=== PATIENT | male | born 2005 | race African-American/Black ===

== ENCOUNTER 2024-09-08 14:28 | Outpatient (CLI) | payer SELFPAY | END 2024-09-08 14:29 | disposition home or self-care (01) | PROVIDERS: Visit Provider Family Medicine | DX: S09.90XA Unspecified injury of head, initial encounter (principal); R51.9 Headache, unspecified; V49.40XA Driver injured in collision with unspecified motor vehicles in traffic accident, initial encounter; Y92.410 Unspecified street and highway as the place of occurrence of the external cause | CPT/HCPCS: A0425; A0427 ==

== ENCOUNTER 2024-09-08 15:05 | Emergency (ER) | payer SELFPAY ==
[2024-09-08] VITALS (12 sets, daily range): BP systolic 113–131; BP diastolic 57–74; PULSE 56–80; RESP 15–20; TEMP 36.6–37; O2SAT 98–100; BMI 20.7
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
[2024-09-08 15:36] LABS: Eosinophils Percent Auto 1.3 % (0.0-7.0); Hematocrit 38.6 % (37.0-53.0); Hemoglobin* 13.4 gm/dL (13.5-17.5); Immature Granulocytes Pct Auto 0.3 %; Lymphocytes Percent Auto 45.2 % (20-44); Mean Corpuscular HGB Conc 35 gm/dL (32-36); Mean Corpuscular Hemoglobin 32 pg (26-34); Mean Corpuscular Volume 91 fL (80-100); Monocytes Percent Auto 11.7 % (0.0-11.0); Neutrophils Percent Auto 40.5 % (42.0-72.0); Platelet Count* 268 K/uL (140-440); RDW Coefficient of Variation % 11.8 % (11.5-15.5); Red Blood Count 4.25 m/uL (4.30-5.90); White Blood Count* 2.99 K/uL (4.50-11.00)
[2024-09-08] MEDS: 0.9 % SODIUM CHLORIDE 1000 ml 1,000 ML IV ×2 (15:41→17:41)
[2024-09-08 15:42] LABS: Troponin, Point-of-Care* 0.01 ng/ml (0.01-0.04)
[2024-09-08 15:48] LABS: Albumin* 4.4 g/dL (3.3-5.0); Chloride* 101 mmol/L (96-114); Potassium* 3.5 mmol/L (3.6-5.1); Slide Review Reflex No; Sodium* 135 mmol/L (135-149)
[2024-09-08 15:51] LABS: Alkaline Phosphatase* 57 U/L (40-150); Amylase* 96 U/L (18-89); Anion Gap 10 mEq/L (7-15); Aspartate Amino Transferase* 25 U/L (12-35); Bilirubin Direct* 0.2 mg/dL (0.0-0.5); Bilirubin Total* 0.7 mg/dL (0.1-1.5); Blood Urea Nitrogen* 15 mg/dL (5-24); Calcium* 8.7 mg/dL (8.4-10.6); Carbon Dioxide* 24 mmol/L (20-32); Creatinine* 0.8 mg/dL (0.5-1.5); Estimated Glomerular Filt Rate 130 ml/min; Glucose* 98 mg/dL (60-115); Total Protein* 7.4 g/dL (6.0-8.3)
[2024-09-08 15:52] LABS: Alanine Aminotransferase* 18 U/L (4-50); Lipase* 52 U/L (23-300)
[2024-09-08 16:07] LABS: Appearance Urine Clear (Clear); Bilirubin Urine Negative (Negative); Blood Urine Negative (Negative); Color Urine Yellow (Yellow); Glucose Urine Negative (Negative); Ketones Urine Negative (Negative); Leukocyte Esterase Urine Negative (Negative); Nitrite Urine Negative (Negative); Protein Urine Negative (Negative); Specific Gravity Urine 1.015 (1.000-1.030); Urobilinogen Urine 0.2 (0.2-1.0)
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
[2024-09-08 16:16] LABS: Bacteria Urine Few; RBC Urine 0-2 (0-2); WBC Urine 0-2 (0-5)
--- OUTSIDE RECORDS SUMMARY | 2024-09-08 16:49 | XMS_ITS | Clinical Summary ---
Author Organization [facility] Address [address] [place] [id number] Care Team Providers Care Kitchen Clerk Name Role Phone Stacy Dewitt NP Primary Care Provider [phone] Allergies No known active allergies Medications No known medications Active Problems Problem Noted Date Diagnosed Date Tinea versicolor 01/06/2022 Anemia, unspecified 01/18/2011 Immunizations Immunization Administration Dates Next Due [id number]-UHF-[id number] 04/21/2009 DTaP 03/05/2009 [id number]-[id number]-PCU (Pediarix) 07/28/2009 DTaP-IPV (Kinrix) 03/15/2010 HIB PRP-OMP (PedvaxHIB) 07/28/2009 HPV 9 (Gardasil 9) 05/07/2019,07/15/2018 Hepatitis A (Peds) 10/26/2009,03/05/2009 Hepatitis B (Peds) 10/26/2009,07/28/2009, 009 Influenza, IIV3 (Age >=3 years) 04/21/2009 Influenza, IIV4 04/17/2019,07/15/2018,03/23/2016 MENINGOCOCCAL VACCINE 2 VIAL 2MO-55YO (MENVEO) 02/24/2021,04/17/2019 MMR 03/05/2009,08/25/2008 Pneumococcal conj 7-Valent (Prevnar 7) 0 TD, UNSPECIFIED 04/17/2019 Tdap 07/15/2018 Tuberculin (PPD) 04/21/2009 Varicella Vaccine 07/28/2009,03/05/2009 Family History Medical History Relation Name Comments Hypertension Mother Other Sister 7 after born , full of fluid Tuberculosis Sister 8 age 5 whil e getting tx for TB, seizure Relation Name Status Comments Brother 1 Alive Brother 2 Alive Brother 3 Alive Father Alive Maternal Grandfather Maternal Grandmother Alive Mother Alive Paternal Grandfather Paternal Grandmother Sister 1 Barry Alive Sister 2 Loniyo Alive Sister 3 Alive Sister 4 Alive Sister 5 Alive Sister 6 Alive Sister 7 Sister 8 Social History Tobacco Use Types Packs/Day Years Used Date Smoking Tobacco: Never Smokeless Tobacco: Never Comments:Does not vape. 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 Gender Identity Not on file Sexual Orientation Not on file Occupation Industry Job Start Date Job End Date student Not on file Not on file Not on file Obstetrics History Last Filed Vital Signs Vital Sign Reading Time Taken Comments Blood Pressure 120/74 10/13/2022 8:53 AM CDT Pulse 53 10/13/2022 8:53 AM CDT Temperature 36.9 C (98.4 F) 01/06/2022 1:49 PM CDT Respiratory Rate 16 01/06/2022 1:49 PM CDT Oxygen Saturation 98% 10/13/2022 8:53 AM CDT Inhaled Oxygen Concentration - - Weight 61.7 kg (136 lb) 10/13/2022 8:53 AM CDT Height 175 cm (5' 8.9) 10/13/2022 8:53 AM CDT Body Mass Index 20.14 10/13/2022 8:53 AM CDT Plan of Treatment Health Maintenance Due Date Last Done Comments BMI (ht and wt on same day) for age 18+ 10/14/2023 10/13/2022 Depression screening for age 12+ 10/14/2023 10/13/2022, 02/24/2021, 05/07/2019 Well Child Check for age 3-20 10/14/2023 10/13/2022, 02/24/2021, 05/07/2019, Additional history exists COVID-19 vaccine series ( season) 2024 Influenza Vaccine (#1) 2024 9, 07/15/2018, 03/23/2016, Additional history exists Tetanus booster 04/17/2029 04/17/2019, 07/15/2018 Pneumococcal series for age 6-49 Aged Out 07/28/2009 No longer eligible based on patient's age to complete this topic Tdap Completed 07/15/2018 HPV series for age 9-26 Completed 05/07/2019, 07/15 Meningococcal series for age 11-21 Completed 02/24/2021, 04/17/2019 HIV for age 15-65 Completed 10/13/2022 Hepatitis C screening for age 18-79 Completed 10/13/2022 Procedures Procedure Name Priority Date/Time Associated Diagnosis Comments LC HIV-1/O/2, 4TH GENERATION Routine 10/13/2022 9:33 AM CDT Screening for HIV (human immunodeficiency virus) LC HCV ANTIBODY RFX TO QUANT PCR Routine 10/13/2022 9:33 AM CDT Need for hepatitis C screening test from Last 3 Months or Most Recently Relevant to Health Maintenance Results * LC HCV ANTIBODY RFX TO QUANT PCR (10/13/2022 9:33 AM CDT) HCV Ab Non Reactive Non Reactive 10/17/2022 3:07 AM CDT [facility] Blood BLOOD SPECIMEN / Unknown Venipuncture / Unknown 10/13/2022 9:33 AM CDT 10/13/2022 9:35 AM CDT Narrative [facility] - 10/17/2022 3:07 AM CDT Performed at: [address] [place] [id number] Head Waiter/Waitress: Mitchell Polanco MD, Phone: [phone] Sebastián Garcia MD LABORATORY Final Result [facility] ([facility]) [address] [place] [address] * LC HIV-1/O/2, 4TH GENERATION (10/13/2022 9:33 AM CDT) HIV Scr 4th Gen Non Reactive Non Reactive 10/17/2022 5:[address] [facility] ([facility]) Comment: HIV Negative HIV-1/HIV-2 antibodies and HIV-1 p24 antigen were NOT detected. There is no laboratory evidence of HIV infection. Blood BLOOD SPECIMEN / Unknown Venipuncture / Unknown 10/13/2022 9:33 AM CDT 10/13/2022 9:35 AM CDT Narrative [facility] ([facility] - 10/17/2022 5:09 AM CDT Performed at: [address] [place] [id number] Head Waiter/Waitress: Mitchell Polanco MD, Phone: [phone] Sebastián Garcia MD LABORATORY Final Result Performing Organization Address City/[facility]/[employer] Phone Number [facility] ([facility]) [address] [place] [address] from Last 3 Months or Most Recently Relevant to Health Maintenance Insurance [id number] [place] [address] [facility] 1963 [facility] [place] [address] [facility] Care Teams Kitchen Clerk Relationship Specialty Start Date End Date Stacy Dewitt NP [address] [facility] [place] [address] PCP - General Nurse Practitioner - Family 02/24/21
[2024-09-08] MEDS: LIDOCAINE/EPINEP/TETRACAINE 3 ML GEL..ML. TOPICAL (17:19)
[2024-09-08] MEDS: TETANUS/DIPHTH/PERTUSSIS 0.5 ML SYRINGE IM (20:43)
== END 2024-09-08 20:57 | disposition short-term general hospital (02) ==
PROVIDERS: Family Medicine; Emergency Provider Family Medicine
DX: S01.81XA Laceration without foreign body of other part of head, initial encounter (principal); S09.93XA Unspecified injury of face, initial encounter; V43.52XA Car driver injured in collision with other type car in traffic accident, initial encounter; S06.0X0A Concussion without loss of consciousness, initial encounter
CPT/HCPCS: 36415; 70450; 70486; 71260; 72125; 73080; 74177; 76604; 76705; 80048; 80076; 81001; 82150; 83690; 84484; 85025; 87086; 90471; 90715; 93005; 93308; 94761; 99285; 99291; G0390; J7030; Q9967